=== PATIENT | female | born 1995 | race Caucasian/White ===

== ENCOUNTER 2019-09-25 10:17 | Emergency (ER) | payer OTHER ==
[2019-09-25 11:42] LABS: Urine Bacteria <20 /HPF (<20); Urine Culture Reflex Order REFLEXED
[2019-09-25 11:43] LABS: Urine Mucus 1+ /HPF (NONE SEEN)
--- NOTE | 2019-09-25 11:45 | ER ---
Nurse's Notes [facility] Name: Shraddha Landry Age: 23 yrs Sex: Female : 1995 Arrival Date: 09/25/2019 Time: 10:22 Bed 12 Private MD: None, None Diagnosis: Urinary tract infection, site not specified Presentation: 09/25 10:36 Presenting complaint: Burning with urination and suprapubic pain since last night. hb Denies fever. Transition of care: patient was not received from another setting of care. Onset of symptoms was September 24, 2019. Risk Assessment: Do you want to hurt yourself or someone else? Patient reports no desire to harm self or others. Initial Sepsis Screen: Does the patient meet any 2 criteria? No. Patient's initial sepsis screen is negative. Does the patient have a suspected source of infection? No. Patient's initial sepsis screen is negative. Care prior to arrival: None. 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 - Social history:: Smoking status: Patient/guardian denies using tobacco. - Ebola Screening: : No symptoms or risks identified at this time. Screenin:54 Abuse screen: Denies threats or abuse. Denies injuries from another. Nutritional iw screening: No deficits noted. Tuberculosis screening: No symptoms or risk factors identified. Fall Risk None identified. Assessment: 10:53 General: Appears in no apparent distress. Behavior is calm, cooperative. Pain: iw Complains of pain in suprapubic area. Neuro: Level of Consciousness is awake, alert, obeys commands, Oriented to person, place, time, situation, Moves all extremities. Full function. Cardiovascular: Patient's skin is warm and dry. Respiratory: Respiratory effort is even, unlabored, Respiratory pattern is regular, symmetrical. : Reports pain with urination. Derm: Skin is pink, warm \T\ dry. normal. Musculoskeletal: Range of motion: intact in all extremities. Vital Signs: 10:37 BP 117 / 78; Pulse 81; Resp 16; Temp 98.1; Pulse Ox 99% on R/A; Weight 58.97 kg; Height hb 5 ft. 2 in. (157.48 cm); Pain 8/10; 10:37 Body Mass Index 23.78 (58.97 kg, 157.48 cm) hb ED Course: 10:22 Patient arrived in ED. mr 10:23 None, None is Private Physician. mr 10:23 [facility] kb 10:23 Tone Gaines MD is Attending Physician. kb 10:36 Triage completed. hb 10:37 Arm band placed on. hb 10:43 Ayala Dwyer, RN is Primary Nurse. iw 10:44 Patient has correct armband on for positive identification. Call light in reach. hb 10:48 Urine Microscopic Only Sent. hb 12:01 No provider procedures requiring assistance completed. Patient did not have IV access iw during this emergency room visit. Administered Medications: 11:59 Drug: Pyridium 200 mg Route: PO; hb 12:02 Follow up: Response: No adverse reaction iw 12:01 Drug: Macrobid 100 mg Route: PO; hb 12:01 Follow up: Response: No adverse reaction iw Outcome: 11:44 Discharge ordered by . kb 12:01 Discharged to home ambulatory. iw 12:01 Condition: good 12:01 Discharge instructions given to patient, Instructed on discharge instructions, follow up and referral plans. Demonstrated understanding of instructions, follow-up care, medications, Prescriptions given X 2. 12:02 Patient left the ED. iw Signatures: Kady Knowles FNP-C FNP-Ckb Rivera Shante mr Ayala Dwyer, RN RN iw Michaela Lopez RN RN hb
--- NOTE | 2019-09-25 11:45 | EDPHYS ---
Physician Documentation [facility] Name: Shraddha Landry Age: 23 yrs Sex: Female : 1995 Arrival Date: 09/25/2019 Time: : Bed 12 Private MD: None, None ED Physician Tone Gaines HPI: 09/25 11:00 This 23 yrs old Female presents to ER via Ambulatory with complaints of kb Urinary Problem. 11:01 The patient presents with urinary symptoms, dysuria, frequency. Onset: The kb symptoms/episode began/occurred yesterday. Modifying factors: The symptoms are alleviated by nothing, the symptoms are aggravated by nothing. Associated signs and symptoms: Pertinent positives: dysuria, urinary frequency. Severity of symptoms: At their worst the symptoms were moderate, in the emergency department the symptoms are unchanged. The patient has experienced similar episodes in the past, a few times. The patient has not recently seen a physician. Pt reports dysuria, urinary frequency and small amount of urine since last night. Has had UTIs in the past and knows that is what it is. 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 - Social history:: Smoking status: Patient/guardian denies using tobacco. - Ebola Screening: : No symptoms or risks identified at this time. ROS: 11:00 Constitutional: Negative for fever, chills, and weight loss, Cardiovascular: Negative kb for chest pain, palpitations, and edema, Respiratory: Negative for shortness of breath, cough, wheezing, and pleuritic chest pain, Abdomen/GI: Negative for abdominal pain, nausea, vomiting, diarrhea, and constipation, Back: Negative for injury and pain, MS/Extremity: Negative for injury and deformity, Skin: Negative for injury, rash, and discoloration, Neuro: Negative for headache, weakness, numbness, tingling, and seizure. 11:00 : Positive for urinary symptoms, urinary frequency, small amounts, burning with urination. Exam: 11:00 Constitutional: This is a well developed, well nourished patient who is awake, alert, kb and in no acute distress. Head/Face: Normocephalic, atraumatic. Neck: Trachea midline, no thyromegaly or masses palpated, and no cervical lymphadenopathy. Supple, full range of motion without nuchal rigidity, or vertebral point tenderness. No Meningismus. Chest/axilla: Normal chest wall appearance and motion. Nontender with no deformity. No lesions are appreciated. Cardiovascular: Regular rate and rhythm with a normal S1 and S2. No gallops, murmurs, or rubs. Normal PMI, no JVD. No pulse deficits. Respiratory: Lungs have equal breath sounds bilaterally, clear to auscultation and percussion. No rales, rhonchi or wheezes noted. No increased work of breathing, no retractions or nasal flaring. Abdomen/GI: Soft, non-tender, with normal bowel sounds. No distension or tympany. No guarding or rebound. No evidence of tenderness throughout. Back: No spinal tenderness. No costovertebral tenderness. Full range of motion. Skin: Warm, dry with normal turgor. Normal color with no rashes, no lesions, and no evidence of cellulitis. MS/ Extremity: Pulses equal, no cyanosis. Neurovascular intact. Full, normal range of motion. Neuro: Awake and alert, GCS 15, oriented to person, place, time, and situation. Cranial nerves II-XII grossly intact. Motor strength 5/5 in all extremities. Sensory grossly intact. Cerebellar exam normal. Normal gait. Vital Signs: 10:37 BP 117 / 78; Pulse 81; Resp 16; Temp 98.1; Pulse Ox 99% on R/A; Weight 58.97 kg; Height hb 5 ft. 2 in. (157.48 cm); Pain 8/10; 10:37 Body Mass Index 23.78 (58.97 kg, 157.48 cm) hb MDM: 10:39 Patient medically screened. kb 11:00 Data reviewed: vital signs, nurses notes. Data interpreted: Pulse oximetry: on room air kb is 99 %. Interpretation: normal. Counseling: I had a detailed discussion with the patient and/or guardian regarding: the historical points, exam findings, and any diagnostic results supporting the discharge/admit diagnosis, lab results, the need for outpatient follow up, a family practitioner, to return to the emergency department if symptoms worsen or persist or if there are any questions or concerns that arise at home. 09/25 10:42 Order name: Urine Microscopic Only; Complete Time: 11:43 kb 09/25 11:25 Order name: Urine Dipstick--Ancillary (enter results); Complete Time: 11:56 bd 09/25 11:25 Order name: Urine --Ancillary (enter results); Complete Time: 11:56 bd 09/25 11:48 Order name: Urine Culture [facility] 09/25 10:42 Order name: Urine Test (obtain specimen); Complete Time: 10:47 kb 09/25 10:42 Order name: Urine Dipstick-Ancillary (obtain specimen); Complete Time: 10:47 kb Administered Medications: 11:59 Drug: Pyridium 200 mg Route: PO; hb 12:02 Follow up: Response: No adverse reaction iw 12:01 Drug: Macrobid 100 mg Route: PO; hb 12:01 Follow up: Response: No adverse reaction iw Disposition: 09/26 07:13 Co-signature as Attending Physician, Tone Gaines MD I agree with the assessment and kdr plan of care. Disposition: 09/25/19 11:44 Discharged to Home. Impression: Urinary tract infection, site not specified. - Condition is Stable. - Discharge Instructions: Urinary Tract Infection, Adult, [id number]. - Prescriptions for Pyridium 200 mg Oral Tablet - take 1 tablet by ORAL route every 8 hours for 3 days; 9 tablet. Macrobid 100 mg Oral Capsule - take 1 capsule by ORAL route every 12 hours for 10 days; 20 capsule. - Medication Reconciliation Form, Thank You Letter, Antibiotic Education, Prescription Opioid Use form. - Follow up: Emergency Department; When: As needed; Reason: Worsening of condition. Follow up: Private Physician; When: 2 - 3 days; Reason: Recheck today's complaints, Continuance of care, Re-evaluation by your physician. Signatures: Dispatcher [employer] [facility] Kady Knowles, Tone Gupta MD MD [facility] Ayala Dwyer RN RN iw Michaela Lopez RN RN Corrections: (The following items were deleted from the chart) 09/25 12:02 11:44 09/25/2019 11:44 Discharged to Home. Impression: Urinary tract infection, site iw not specified. Condition is Stable. Forms are Medication Reconciliation Form, Thank You Letter, Antibiotic Education, Prescription Opioid Use. Follow up: Emergency Department; When: As needed; Reason: Worsening of condition. Follow up: Private Physician; When: 2 - 3 days; Reason: Recheck today's complaints, Continuance of care, Re-evaluation by your physician. kb
[2019-09-25] MEDS ORDERED: NITROFURAN MACRO 100 MG CAP PO ONE (11:51)
[2019-09-25] MEDS ORDERED: PHENAZOPYRIDINE 100MG TAB PO ONE (11:51)
[2019-09-25 11:54] LABS: Urine Blood 3+ (NEG); Urine Glucose NEGATIVE (NEG); Urine Protein NEGATIVE (NEG); Urine Specific Gravity <1.005 (1.005-1.030)
[2019-09-25 12:15] VITALS: BP 117/78; TEMP 98.1; O2SAT 99
== END 2019-09-25 12:02 | disposition home or self-care (01) ==
LOC: ER 10:17
DX: N39.0 Urinary tract infection, site not specified (principal)
CPT/HCPCS: 81003; 81015; 81025; 87077; 87086; 87088; 87186; 99283